=== PATIENT | female | born 2000 | race Caucasian/White ===

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

== ENCOUNTER 2021-05-20 00:28 | Emergency (ER) | payer BC ==
[2021-05-20 01:02] VITALS: TEMP 97; BMI 20.2
[2021-05-20 02:39] LABS: HEMATOCRIT 40.5 % (32.4-45.2); HEMOGLOBIN 13.4 GM/dL (10.7-15.3); MCH 30.1 pg (25.7-33.7); MCHC 33.1 g/dl (32.0-36.0); MEAN CELL VOLUME 91.1 fl (80-96); PLATELET COUNT 199 10^3/uL (134-434); RBC 4.45 M/mm3 (3.60-5.2); RDW 13.4 % (11.6-15.6); WHITE BLOOD COUNT 6.8 K/mm3 (4.0-10.0)
[2021-05-20 02:45] LABS: INR 1.03 (0.83-1.09)
[2021-05-20 02:48] LABS: ACTIVATED PTT 29.6 SECONDS (25.2-36.5)
[2021-05-20 02:54] LABS: CHLORIDE 106 mmol/L (98-107); SODIUM 139 mmol/L (136-145)
[2021-05-20 02:57] LABS: CALCIUM 9.4 mg/dL (8.5-10.1)
[2021-05-20 02:58] LABS: ALBUMIN 3.8 g/dl (3.4-5.0); ANION GAP 6 MMOL/L (8-16); CO2 27 mmol/L (21-32); GLUCOSE,RANDOM 95 mg/dL (74-106)
[2021-05-20 03:01] LABS: SGOT/AST 29 U/L (15-37); SGPT/ALT 46 U/L (13-61)
[2021-05-20 03:02] LABS: BILIRUBIN,TOTAL 0.3 mg/dL (0.2-1); TOT PROT 7.2 g/dl (6.4-8.2)
[2021-05-20 03:03] LABS: ALK PHOS 58 U/L (45-117)
[2021-05-20 03:51] VITALS: BP 108/68; PULSE 79
== END 2021-05-20 03:52 | disposition home or self-care (01) ==
LOC: JER 00:28
DX: N93.9 Abnormal uterine and vaginal bleeding, unspecified (principal)
CPT/HCPCS: 36415; 76817-TC; 80053; 84702; 84703; 85027; 85610; 85730; 99284-25

== ENCOUNTER 2023-09-21 12:36 | Emergency (ER) | payer BC ==
[2023-09-21 12:50] VITALS: RESP 18; BMI 23.3
[2023-09-21] MEDS ORDERED: ACETAMINOPHEN INJECTION 100 ML IVPB ONE (14:20)
[2023-09-21] MEDS ORDERED: ONDANSETRON 4 MG/2 ML VIAL ONE (14:21)
[2023-09-21] MEDS: SODIUM CHLORIDE 0.9% 500 ML INFUS.BAG IV ONE (14:39)
[2023-09-21] MEDS: ACETAMINOPHEN 1000 MG/100 ML BAG IVPB ONE (14:39)
[2023-09-21] MEDS: ONDANSETRON 4 MG/2 ML VIAL IVPUSH ONE (14:39)
[2023-09-21 14:43] LABS: BASO % 0.4 % (0-2.0); EOS % 0.5 % (0-4.5); LYMPH % 26.1 % (8-40); MCH 30.5 pg (25.7-33.7); MCHC 33.2 g/dl (32.0-36.0); MEAN CELL VOLUME 91.6 fl (80-96); MEAN PLT VOLUME 9.4 fl (7.5-11.1); MONO % 5.5 % (3.8-10.2); NEUT % 67.5 % (42.8-82.8); PLATELET COUNT 182 10^3/uL (134-434); RBC 4.26 M/mm3 (3.60-5.2); RDW 13.9 % (11.6-15.6); URINE APPEARANCE CLEAR; URINE BILIRUBIN NEGATIVE (NEGATIVE); URINE COLOR YELLOW; URINE GLUCOSE (UA) NEGATIVE (NEGATIVE); URINE KETONE NEGATIVE (NEGATIVE); URINE LEUK ESTERASE NEGATIVE (NEGATIVE); URINE NITRITE NEGATIVE (NEGATIVE); URINE PROTEIN NEGATIVE (NEGATIVE); URINE UROBILINOGEN 0.2 mg/dL (0.2-1.0)
[2023-09-21 15:03] LABS: CHLORIDE 108 mmol/L (98-107); POTASSIUM 4.6 mmol/L (3.5-5.1); SODIUM 136 mmol/L (136-145)
[2023-09-21 15:05] LABS: CALCIUM 9.1 mg/dL (8.5-10.1)
[2023-09-21 15:06] LABS: ALBUMIN 3.8 g/dl (3.4-5.0); ANION GAP -2 mmol/L (4-13); BLOOD UREA NITROGEN 12.1 mg/dL (7-18); CO2 29 mmol/L (21-32); GLUCOSE,RANDOM 100 mg/dL (74-106)
[2023-09-21 15:09] LABS: CREATININE 0.8 mg/dL (0.55-1.3); SGOT/AST 17 U/L (15-37); SGPT/ALT 23 U/L (13-61)
[2023-09-21 15:10] LABS: BILIRUBIN,TOTAL 0.2 mg/dL (0.2-1)
[2023-09-21 15:11] LABS: TOT PROT 6.7 g/dl (6.4-8.2)
[2023-09-21 15:12] LABS: ALK PHOS 61 U/L (45-117)
[2023-09-21 15:22] LABS: ERYTHROCYTE SEDIMENTATION RATE 8 mm/hr (0-20)
[2023-09-21] MEDS ORDERED: KETOROLAC TROMETHAMINE 30 MG/1 ML VIAL IVPUSH ONE (18:24)
[2023-09-21 19:19] VITALS: BP 101/64; PULSE 65; TEMP 97.9
== END 2023-09-21 19:27 | disposition home or self-care (01) ==
LOC: JER 12:36
PROC: 3E033NZ Introduction of Analgesics, Hypnotics, Sedatives into Peripheral Vein, Percutaneous Approach (ICD-10-PCS; principal; 2023-09-21)
PROC: 3E033GC Introduction of Other Therapeutic Substance into Peripheral Vein, Percutaneous Approach (ICD-10-PCS; 2023-09-21)
DX: R10.31 Right lower quadrant pain (principal); R11.10 Vomiting, unspecified; E28.2 Polycystic ovarian syndrome
CPT/HCPCS: 36415; 74177-TC; 76830-TC; 76856-TC; 80053; 81003; 84703; 85025; 85651; 86140; 87086; 99285-25; J0131; Q9967